=== PATIENT | female | born 2000 | race Caucasian/White ===

== ENCOUNTER → 2019-09-06 12:27 | Outpatient (BNVA) | payer BC, SELFPAY | PROVIDERS: Family Provider Family Medicine; PCP Family Medicine; Visit Provider Nurse Practitioner Family | DX: N39.0 Urinary tract infection, site not specified (principal); N92.6 Irregular menstruation, unspecified; N30.00 Acute cystitis without hematuria | CPT/HCPCS: 81000; 81025 ==

== ENCOUNTER → 2019-09-09 12:27 | Outpatient (BNVA) | payer BC, SELFPAY | PROVIDERS: Family Provider Family Medicine; PCP Family Medicine; Visit Provider Emergency Medicine | DX: N39.0 Urinary tract infection, site not specified (principal) | CPT/HCPCS: 81000 ==

== ENCOUNTER → 2021-01-09 16:23 | Outpatient (BNVA) | payer BC, SELFPAY | PROVIDERS: Family Provider Family Medicine; PCP Family Medicine; Visit Provider Registered Nurse Neonatal Intensive Care | DX: Z20.822 Contact with and (suspected) exposure to COVID-19 (principal); R05 Cough; R50.9 Fever, unspecified | CPT/HCPCS: 87635 ==

== ENCOUNTER 2022-10-17 05:54 | Observation (INO) | payer BC, SELFPAY ==
[2022-10-17 06:04] VITALS: BMI 42.0
--- NOTE | 2022-10-17 07:41 | P.CONIM_ITS ---
Providers/Reason For Consult Consulting Physician/Specialty*: Edward Cardenas MD, hospitalist Reason for Consult*: Medical management Requesting Physician: Dr. Torres Attending Physician: Siddhartha Torres MD Primary Care Provider: Ruth Burden DO History of Present Illness History of Present Illness Evelin Manley is a 22 year old female who presented to [facility] emergency department with complaints of abdominal pain starting Monday. She had a bout that lasted a little while then, went away and came back with a vengeance on Monday with discomfort in her right upper quadrant and epigastric area. She reported this occurred after eating barbecue. She eventually got nauseated and if she vomited. No diarrhea, blood in emesis, blood in stool. No history of constipation. Last p.o. intake of liquid or food at 7 PM last night. Has had at least 2 prior episodes of discomfort she attributed to heartburn in the past that now she is wondering if could have been gallbladder pain. She attributed this to food in the past as well. No fevers. No history of significant other illnesses. Review of Systems General: Reports: 10 or more systems reviewed and unremarkable except in HPI and below Card: Denies: chest pain Resp: Denies: dyspnea GI: Reports: abdominal pain, nausea and vomiting; Denies: diarrhea, constipation, hematochezia or melena Medications/Allergies Home Medications Medication Instructions Recorded Confirmed Last Taken Type bupropion HCl 300 mg 24 hr tablet, 300 mg PO DAILY 10/17/22 10/17/22 10/16/22 22:00 History extended release Allergies Allergy/AdvReac Type Severity Reaction Status Date / Time aspirin Allergy Mild ALGY-HIVES Verified 01/09/21 16:01 ibuprofen Allergy Mild ALGY-HIVES Verified 01/09/21 16:01 PFSH Acute PFSH: Medical History (Updated 10/17/22 @ 07:45 by Edward Cardenas MD) Depression Surgical History S/P tonsillectomy and adenoidectomy Social History Smoking and tobacco status: current every day smoker cigarettes Second hand smoke exposure: No Alcohol intake: never Desire information about alcohol rehabilitation?: No Substance/Drug Use: never Desire information about substance/drug rehabilitation?: No Sexually active: Yes Current gender identity: Female Other PFS information: Supplemental [facility] Information: Denies any significant family history. Vitals/I&O/Wt Last Vital Signs O2 Del Method Room Air 10/17/22 06:04 Weight last 48 hrs Weight 111.13 kg Physical Exam Narrative: General exam is a white female, complaining of right upper quadrant pain and asking for something for nausea HEENT: Atraumatic and normocephalic. Pupils equally round. Oropharynx clear. Neck is supple no lymphadenopathy thyromegaly Cardiovascular regular rate and rhythm without murmur, no S3 or S4 Lungs clear no wheezing or crackles Abdomen is soft. Tenderness is noted in the right upper quadrant. Positive bowel sounds. exam is deferred Extremities no cyanosis clubbing or edema, cap refill brisk Skin no rash Neuro no obvious focal deficits. Data Other Labs: Laboratory from [facility] was reviewed. Urinalysis with 3-5 whites, otherwise negative. White blood count 9.9, hemoglobin 12.0, platelet count of 318,000 Sodium 141, potassium 3.6, chloride 105, bicarb 27, BUN 11, creatinine 0.9, glucose 119. LFTs and lipase are normal Gallbladder ultrasound report demonstrates multiple stones in the gallbladder, with one in the neck that is not mobile. Common bile duct is normal diameter test is negative A&P Assessment and plan (1) Symptomatic cholelithiasis: There is concern the patient has symptomatic cholelithiasis, with a gallstone in the neck of the gallbladder that is not mobile. We will defer treatment to surgery Currently keep n.p.o., initiate IV fluids. Initiate nausea and pain control with Zofran, morphine Arrange for CBC and CMP tomorrow morning (2) Tobacco dependency: Patient declines nicotine patch currently (3) Depression: Resume bupropion when able. N.p.o. currently Plan Thank you for this consultation Will sign off at this time. Please contact me if there are any concerns and you would like me to address any other issues that come up. Consult Attestations Medical Necessity Statement: As per primary Diagnoses Symptomatic cholelithiasis K80.20 Tobacco dependency F17.200 Depression F32.A Time Spent (min) 39
[2022-10-17 07:50] VITALS: BP 139/92; PULSE 80; RESP 18; TEMP 36.8; O2SAT 100
[2022-10-17] MEDS: ondansetron 2 mg/ML SDV 2 mL 4 MG IVP ×3 (09:08→21:22)
[2022-10-17] MEDS: sodium chlor 0.9% + KCl 20 mEq 20 MEQ/1,000 ML BAG 100 MEQ IV ×2 (09:10→17:52)
[2022-10-17] MEDS: pantoprazole 40 mg SDV IVP (09:12)
[2022-10-17 12:00] VITALS: BP 139/97; PULSE 94; RESP 16; TEMP 36.7; O2SAT 97
[2022-10-17] MEDS: HYDROmorphone 1 mg/mL INJ 1 mL 0.5 MG IVP ×2 (14:36→21:15)
[2022-10-17 15:59] VITALS: BP 137/87; PULSE 100; RESP 16; TEMP 36.9; O2SAT 99
--- NOTE | 2022-10-17 16:15 | P.HP_ITS ---
Providers/Chief Complaint Admitting Physician: Siddhartha Torres MD Primary Care Provider: Ruth Burden DO Chief Complaint: Cholelithiaisis History of Present Illness Evelin Manley is a 22 year old female who presented to the hospital with abdominal pain. The pain is located in the right upper quadrant and does not radiate. Pain began 1 day ago. Eating makes pain worse. Nothing makes pain better. She does endorse nausea and vomiting. Denies any diarrhea or co nstipation. Ultrasound shows cholelithiasis. Review of Systems General: Reports: 10 or more systems reviewed and unremarkable except in HPI and below Medications/Allergies Home Medications Medication Instructions Recorded Confirmed Last Taken Type bupropion HCl 300 mg 24 hr tablet, 300 mg PO DAILY 10/17/22 10/17/22 10/16/22 22:00 History extended release Allergies Allergy/AdvReac Type Severity Reaction Status Date / Time aspirin Allergy Mild ALGY-HIVES Verified 01/09/21 16:01 ibuprofen Allergy Mild ALGY-HIVES Verified 01/09/21 16:01 PFSH Acute PFSH: Medical History (Updated 10/18/22 @ 10:06 by Tate Rios DO) Anxiety Depression Genital warts Surgical History S/P tonsillectomy and adenoidectomy Social History Smoking and tobacco status: current every day smoker cigarettes Second hand smoke exposure: No Alcohol intake: never Desire information about alcohol rehabilitation?: No Substance/Drug Use: never Desire information about substance/drug rehabilitation?: No Sexually active: Yes Current gender identity: Female Vitals/I&O/Wt Last Vital Signs Temp 98.5 F 10/17/22 15:59 Pulse 100 10/17/22 15:59 Resp 16 10/17/22 15:59 BP 137/87 10/17/22 15:59 Pulse Ox 99 10/17/22 15:59 O2 Del Method Room Air 10/17/22 15:59 10/17/22 10/17/22 10/17/22 06:59 14:59 22:59 Intake Total 240 / 240 Balance 240 / 240 Weight last 48 hrs Weight 245 lb Physical Exam Narrative: General : Patient is well developed , no acute distress, oriented x3 Head : Normal cephalic, a-traumatic. Ears : Pinnae and external canal are normal. Hearing is normal. Eyes : PERRLA, Sclera and injection are normal. No conjunctival discharge. Nose : Mucous membranes are without erythema. Throat : buccal mucosa is normal, gums are without significant recession or hypertrophy. Lungs : Equal chest rise bilaterally, no use of accessory muscles, trachea is midline. Cor : Rate and rhythm are normal. Abdomen : Soft, ND, tender to palpation right upper quadrant, positive Bennett sign,, no g/r/m Extremities : No edema, no cyanosis or clubbing, dorsalis pedis pulses are present bilaterally, non-tender to palpation of calves. Upper extremities are normal bilaterally. Back : non-tender to palpation, no CVA tenderness. Neuro : CN II - XII intact, Upper and lower extremities have equal and full strength Data 10/18/22 05:28 10/18/22 05:28 A&P Assessment and plan (1) Acute calculous cholecystitis: Plan IV antibiotics Pain control To OR tomorrow for laparoscopic cholecystectomy The risks and benefits of the procedure, including but not limited to, bleeding, infection, scar, numbness, pain, damage to surrounding structures, damage to common bile duct requiring additional surgery, conversion to an open procedure, were explained to the patient. He is understanding of the risks and wishes to proceed. Attestations Medical Necessity Statement*: Patient reports at least 1 night in the hospital for IV antibiotics and laparoscopic cholecystectomy tomorrow Coding Level of Care Code Acute Code for [facility] Fwd Diagnoses Acute calculous cholecystitis K80.00
[2022-10-17] MEDS: metoclopramide 5 mg/mL SDV 2 mL IVP ×2 (17:50→22:51)
[2022-10-17] MEDS: piperacillin-tazobactam 3.375 GM in sodium chloride 0.9% (plus) 50 ML IV (18:58)
[2022-10-17 20:00] VITALS: BP 145/93; PULSE 101; RESP 18; TEMP 37.3; O2SAT 100
[2022-10-17] MEDS: HYDROcodone-acetaminophen 7.5-325 mg Tablet 1 TAB PO (20:24)
[2022-10-17 21:15] VITALS: RESP 16
[2022-10-18] VITALS (15 sets, daily range): BP systolic 104–151; BP diastolic 71–89; PULSE 86–110; RESP 16–96; TEMP 36.3–37.6; O2SAT 95–100
[2022-10-18] MEDS: piperacillin-tazobactam 3.375 GM in sodium chloride 0.9% (plus) 50 ML IV ×3 (02:10→17:35)
[2022-10-18] MEDS: sodium chlor 0.9% + KCl 20 mEq 20 MEQ/1,000 ML BAG 100 MEQ IV (03:32)
[2022-10-18] MEDS: HYDROmorphone 1 mg/mL INJ 1 mL 0.5 MG IVP ×2 (03:36→08:44)
[2022-10-18] MEDS: metoclopramide 5 mg/mL SDV 2 mL IVP ×2 (05:07→17:35)
[2022-10-18] MEDS: ketorolac 30 mg/mL INJ 15 MG IVP (05:33)
[2022-10-18 05:44] LABS: Basophils % 0.1 %; Eosinophils % 0.2 %; Hemoglobin 12.8 g/dL (11.5-15.3); Lymphocytes # 2.6 10^3/uL (0.8-4.8); Mean Platelet Volume 10.6 fL (7.4-10.4); Monocytes # 0.9 10^3/uL (0.2-0.9); Monocytes % 5.7 %; Neutrophils # 12.54 10^3/uL (1.8-7.7); Neutrophils % 77.7 %; Nucleated Red Blood Cells % 0 %; Platelet Count 428 10^3/cmm (130-400); Red Blood Count 5.13 10^6/uL (4.1-5.3); Red Cell Distribution Width 13.3 % (12.1-15.1); White Blood Count 16.1 10^3/uL (4.0-10.0)
[2022-10-18 06:02] LABS: Alanine Aminotransferase 11 U/L (0-33); Albumin Level 4.2 g/dL (3.5-5.2); Alkaline Phosphatase 74 U/L (35-105); Anion Gap 18.2 (5-19); Aspartate Amino Transferase 14 U/L (0-32); Blood Urea Nitrogen 6 mg/dL (6-20); Calcium 8.9 mg/dL (8.5-10.5); Carbon Dioxide 20 mmol/L (22-29); Chloride 97 mmol/L (98-107); Globulin 3.4 g/dL (1.3-4.6); Glomerular Filtration Rate 88.1 mL/min (90-130); Glucose 129 mg/dL (65-115); Osmolality Calculated 271 mOsm/kg (285-295); Potassium 4.2 mmol/L (3.5-5.1); Sodium 131 mmol/L (136-145); Total Bilirubin 0.9 mg/dL (0.15-1.2); Total Protein 7.6 g/dL (6.6-8.7)
[2022-10-18] MEDS: pantoprazole 40 mg SDV IVP (08:45)
--- NOTE | 2022-10-18 10:07 | PM.PN ---
Vitals/I&O/Wt Last Vital Signs Temp 98.8 F 10/18/22 08:00 Pulse 92 10/18/22 08:00 Resp 16 10/18/22 08:44 BP 118/75 10/18/22 08:00 Pulse Ox 97 10/18/22 08:00 O2 Del Method Room Air 10/18/22 08:00 10/17/22 10/18/22 10/18/22 22:59 06:59 14:59 Intake Total 1110 / 1350 1066.667 / 2416.667 Balance 1110 / 1350 1066.667 / 2416.667 Weight last 48 hrs Weight 245 lb Data 10/18/22 05:28 10/18/22 05:28 A&P Assessment and plan (1) Acute calculous cholecystitis: Plan Laparoscopic cholecystectomy The risks and benefits of the procedure, including but not limited to, bleeding, infection, scar, numbness, pain, damage to surrounding structures, damage to common bile duct requiring additional surgery, conversion to an open procedure, were explained to the patient. He is understanding of the risks and wishes to proceed. Attestations Medical Necessity Statement*: Patient may require an additional night of hospitalization following laparoscopic cholecystectomy today Coding Level of Care Code Acute Code for g Fwd Diagnoses Acute calculous cholecystitis K80.00
--- NOTE | 2022-10-18 10:19 | PC.CHAP ---
Pastoral Care Encounter/Spiritual Assessment Type of Contact [] Declined oracle programmer visit [] Patient/Family/Request visit [] Outpatient visit [] Follow-up visit [] Physician referral [] Code/Alert [] Routine visit [] Staff referral [] Actively dying [] Patient sleeping [] Family support [] [] Out of room [] Palliative care [] [x] Receiving care in room [] Pre-surgical visit [] Trauma [] Long length of stay [] ICU visit [] Other: Relational/Emotional Strength [] Patient feels connected with others/family/visitors/staff [] Distress [] Loneliness/isolation [] Abandonment Spirituality of Patient [] Person of Chloe [] Attends Jehov[employer] Witness of their Chloe [] Believes in Prayer [] Reads Bible or Druze materials [] There are Spiritual issues to be addressed Switchgear Repairer Interventions [] Prayer [] Active listening [] Non-anxious presence [] Spiritual/emotional support [] Crisis/trauma care [] Spiritual counseling [] Bereavement support [] Provided bereavement packet [] Provided Bible/devotional materials [] Provided toy/stuffed animal, coloring book to patient or family member [] Provided Communion [] Anointing/[place] [] Salvation [] Completed spiritual assessment [] Other: Impact on Illness or Injury [] Angry [] Fearful [] Anxious [] Often cries [] Exhaustion [] Unable to work [] Unable to attend baptist [] Unable to walk/stand [] Unable to read [] Unable to drive [] Unable to eat/drink [] Unable to sleep [] Unable to be with family [] Patient intubated [] Other: Summary Time spent with patient
[2022-10-18] MEDS: sodium chloride 0.9% 1,000 ML 30 ML IV (12:06)
[2022-10-18 12:12] LABS: OR HCG Qualitative Urine Negative (Negative)
[2022-10-18] MEDS: fentaNYL 50 mcg/mL INJ 2mL IVP (12:55)
[2022-10-18] MEDS: ondansetron 2 mg/ML SDV 2 mL 4 MG IVP (12:55)
[2022-10-18] MEDS: lidocaine-epi 2% 20 mL INJ 3 ML INJECTION (13:47)
--- NOTE | 2022-10-18 14:16 | P.OP_ITS ---
Operative Report Date of procedure: October 18, 2022 Pre-op diagnosis: , Acute calculus cholecystitis Post-op diagnosis: same Procedure done: Laparoscopic cholecystectomy Implants: None Specimens removed/disposition: Gallbladder Surgeon: Dr. Tate Rios DO Anesthesia: General Estimated blood loss (mL): 20 Complications: None apparent Brief History: This is a very pleasant 22-year-old female who presented to the hospital with acute calculus cholecystitis. Laparoscopic cholecystectomy was indicated. The risk and benefits were explained and documented. Procedure: Patient was wheeled into the operative room and placed on the OR table in a supine position. Abdomen was inspected prepped and draped in usual sterile fashion. Time-out was performed and all present were in agreement. A 15 blade scalp was used to make a stab incision in the left upper quadrant and intra- abdominal insufflation was achieved using a Veress needle. After localizing the tissue incisions were made and a 5 millimeter trocar was placed into the umbilicus as well as 2 in the right upper quadrant. A 12 millimeter trocar was placed in the epigastrium. Gallbladder was grasped and elevated. The gallbladder was significantly inflamed and fibrotic. The triangle of Calot was carefully dissected using blunt dissection and electrocautery until the triangle of Calot clearly identified. The cystic duct was clipped proximally and double clipped distally. The duct was then ligated proximally. The cystic artery was doubly clipped and ligated. The gallbladder was then removed from the liver bed using electrocautery. The gallbladder was removed from the abdomen using an Endo-Catch bag through the epigastric incision. The liver bed was inspected and no bleeding was seen. The abdomen was irrigated and suctioned. The epigastric incision had to be extended to fit the gallbladder. The fascia at this incision was closed with a Filemon-Sarita and [id number] 0 Vicryl. All ports removed. Skin was washed and dried. Incisions were closed with 3-0 and 4-O Vicryl in a subcuticular interrupted fashion. Skin glue was applied. Patient tolerated the procedure well.
--- NOTE | 2022-10-18 15:18 | ANE.PACU2 ---
Inpatient post-anesthesia follow up: Airway intact: Yes Vital signs: Temperature 97.4 F Pulse Rate 97 Respiratory Rate 18 Blood Pressure 145/89 Pulse Oximetry 99 Oxygen Delivery Me thod Room Air Oxygen Flow Rate 6 Fraction of Inspir ed Oxygen Hydration adequate: Yes Nausea and vomiting: No Pain level: 1 Mental status: Baseline
[2022-10-19] VITALS: BP 102/71; PULSE 101; RESP 16; TEMP 37.2; O2SAT 96
[2022-10-19] MEDS: sodium chlor 0.9% + KCl 20 mEq 20 MEQ/1,000 ML BAG 30 MEQ IV (00:32)
[2022-10-19] MEDS: metoclopramide 5 mg/mL SDV 2 mL IVP ×2 (00:32→04:49)
[2022-10-19] MEDS: HYDROcodone-acetaminophen 7.5-325 mg Tablet 1 TAB PO ×3 (02:13→19:02)
[2022-10-19] MEDS: piperacillin-tazobactam 3.375 GM in sodium chloride 0.9% (plus) 50 ML IV ×2 (02:14→09:20)
[2022-10-19 03:37] VITALS: BP 128/83; PULSE 100; RESP 15; TEMP 37.1; O2SAT 97
[2022-10-19 07:23] VITALS: BP 124/73; PULSE 103; RESP 16; TEMP 36.9; O2SAT 97
[2022-10-19] MEDS: pantoprazole 40 mg SDV IVP (09:19)
[2022-10-19 11:07] VITALS: BP 130/85; PULSE 95; RESP 16; TEMP 36.9; O2SAT 97
[2022-10-19] MEDS: buPROPion XL (24 HR) 300 mg Tablet PO (11:46)
[2022-10-19 15:14] VITALS: BP 121/79; PULSE 94; RESP 16; TEMP 37.4; O2SAT 96
--- NOTE | 2022-10-19 18:42 | P.DS_ITS ---
Discharge Providers Date of Admission: 10/17/22 05:54 Date of Discharge: October 19, 2022 Attending Provider at Admission: Siddhartha Torres MD Attending Provider at Discharge: Tate Rios DO Primary Care Provider: Ruth Burden DO Diagnoses at Discharge Discharge Diagnosis (1) Acute calculous cholecystitis: Status: Acute Reason for Visit 2 Reason for Visit: Cholelithiaisis Hospital Course Hospital Course 22-year-old female presented to the hospital with acute calculus cholecystitis. He underwent laparoscopic cholecystectomy and was discharged home in good condition Physical Exam Narrative: General : Patient is well developed , no acute distress, oriented x3 Head : Normal cephalic, a-traumatic. Ears : Pinnae and external canal are normal. Hearing is normal. Eyes : PERRLA, Sclera and injection are normal. No conjunctival discharge. Nose : Mucous membranes are without erythema. Throat : buccal mucosa is normal, gums are without significant recession or hypertrophy. Lungs : Equal chest rise bilaterally, no use of accessory muscles, trachea is midline. Cor : Rate and rhythm are normal. Abdomen : Soft, ND,, incisions intact without erythema or exudate, no g/r/m Extremities : No edema, no cyanosis or clubbing, dorsalis pedis pulses are present bilaterally, non-tender to palpation of calves. Upper extremities are normal bilaterally. Back : non-tender to palpation, no CVA tenderness. Neuro : CN II - XII intact, Upper and lower extremities have equal and full strength Discharge Data Studies Completed and Pending Pending at discharge Category Date Time Status Pathology: Surgical [PTH] Routine Pth 10/18/22 13:44 Received Laboratory Results WBC 16.1 10^3/uL (4.0-10.0) H 10/18/22 05:28 RBC 5.13 10^6/uL (4.1-5.3) 10/18/22 05:28 Hgb 12.8 g/dL (11.5-15.3) 10/18/22 05:28 Hct 40.0 % (37.0-47.0) 10/18/22 05:28 MCV 78.0 fl (81-99) L 10/18/22 05:28 MCH 25.0 pg (28.0-34.0) L 10/18/22 05:28 MCHC 32.0 g/dL (30.0-36.0) 10/18/22 05:28 RDW 13.3 % (12.1-15.1) 10/18/22 05:28 Plt Count 428 10^3/cmm (130-400) H 10/18/22 05:28 MPV 10.6 fL (7.4-10.4) H 10/18/22 05:28 Neut % (Auto) 77.7 % 10/18/22 05:28 Lymph % (Auto) 16.0 % 10/18/22 05:28 Letcher % (Auto) 5.7 % 10/18/22 05:28 Eos % (Auto) 0.2 % 10/18/22 05:28 Baso % (Auto) 0.1 % 10/18/22 05:28 Neut # (Auto) 12.54 10^3/uL (1.8-7.7) H 10/18/22 05:28 Lymph # (Auto) 2.6 10^3/uL (0.8-4.8) 10/18/22 05:28 Letcher # (Auto) 0.9 10^3/uL (0.2-0.9) 10/18/22 05:28 Eos # (Auto) 0.0 10^3/uL (0.0-0.8) 10/18/22 05:28 Baso # (Auto) 0.0 10^3/uL (0.0-0.1) 10/18/22 05:28 Nucleated RBC % (auto) 0 % 10/18/22 05:28 Nucleated RBCs # 0.0 /100WBC 10/18/22 05:28 Sodium 131 mmol/L (136-145) L 10/18/22 05:28 Potassium 4.2 mmol/L (3.5-5.1) 10/18/22 05:28 Chloride 97 mmol/L (98-107) L 10/18/22 05:28 Carbon Dioxide 20 mmol/L (22-29) L 10/18/22 05:28 Anion Gap 18.2 (5-19) 10/18/22 05:28 BUN 6 mg/dL (6-20) 10/18/22 05:28 Creatinine 0.8 mg/dL (0.5-0.9) 10/18/22 05:28 GFR Calculation 88.1 mL/min (90-130) L 10/18/22 05:28 Glucose 129 mg/dL (65-115) H 10/18/22 05:28 Calculated Osmolality 271 mOsm/kg (285-295) L 10/18/22 05:28 Calcium 8.9 mg/dL (8.5-10.5) 10/18/22 05:28 Total Bilirubin 0.9 mg/dL (0.15-1.2) 10/18/22 05:28 AST 14 U/L (0-32) 10/18/22 05:28 ALT 11 U/L (0-33) 10/18/22 05:28 Alkaline Phosphatase 74 U/L (35-105) 10/18/22 05:28 Total Protein 7.6 g/dL (6.6-8.7) 10/18/22 05:28 Albumin 4.2 g/dL (3.5-5.2) 10/18/22 05:28 Globulin 3.4 g/dL (1.3-4.6) 10/18/22 05:28 Urine HCG, Qual Negative (Negative) 10/18/22 12:10 Procedures Performed Laparoscopic cholecystectomy Vitals Last Vital Signs Temp 99.3 F 10/19/22 15:14 Pulse 94 10/19/22 15:14 Resp 16 10/19/22 15:14 BP 121/79 10/19/22 15:14 Pulse Ox 96 10/19/22 15:14 O2 Del Method Room Air 10/19/22 15:14 O2 Flow Rate 6 10/18/22 14:38 Discharge Plan Discharge Patient Disposition: Home Condition: Stable Prescriptions: New hydrocodone-acetaminophen 7.5-325 mg tablet 1 tab PO Q6H PRN (Reason: pain) Qty: 20 0RF DOK 100 mg capsule 100 mg PO BID Qty: 14 0RF amoxicillin-pot clavulanate 875-125 mg tablet 1 tab PO BID Qty: 20 0RF Continued bupropion HCl 300 mg tablet extended release 24 hr 300 mg PO DAILY Discharge Orders: Discharge Order (Routine); Ordered 10/19/22 Ordered By: Tate Rios Referrals: Tate Rios DO [Physician] - 11/01/22 1:15 pm Discharge Diet: Advance as tolerated Discharge Activity: Resume usual activity Patient Instructions: Opioid Safety, Post Anesthesia Care Activity Restrictions/Additional Instructions: Not soak incision underwater for 2 weeks. Shower daily Discharge Attestations Time Spent in Discharge Care*: less than 30 min Quality Metrics Clinical Quality Measures [ No reported AMI, CVA or VTE this stay] Coding Level of Care Code Acute Code for Chg Fwd Diagnoses Acute calculous cholecystitis K80.00
--- NOTE | 2022-10-19 19:47 | PC.NURSE ---
1930: discharge instructions provided to patient, in regards to diet, activity, medication usage and times, follow up appointment, s/s to report as well as adverse reactions to medications prescribed. Patient unable to get pain med script filled until am due to pharmacy being closed, 2 hydros provided, instructions given to take every 6 hours as needed for pain, verbalizes understanding.
== END 2022-10-20 01:00 | disposition home or self-care (01) ==
PROVIDERS: Internal Medicine; Admitting Provider Surgery; PCP Family Medicine; Visit Provider Surgery
PROC: 0FT44ZZ Resection of Gallbladder, Percutaneous Endoscopic Approach (ICD-10-PCS; CPT 47562; principal; 2022-10-18 12:00)
DX: K80.12 Calculus of gallbladder with acute and chronic cholecystitis without obstruction (principal); F17.210 Nicotine dependence, cigarettes, uncomplicated; F32.A Depression, unspecified
CPT/HCPCS: 47562; 36415; 80053; 81025; 84703; 85025; 88304; C9113; G0378; G0379; J0131; J1100; J1170; J1885; J2405; J2543; J2704; J2710; J2765; J3010; J3480; J3490; J7030

== ENCOUNTER → 2024-02-06 11:07 | Outpatient (BNVA) | payer BC, SELFPAY | PROVIDERS: PCP Family Medicine; Referring Provider Nurse Practitioner Family; Visit Provider Nurse Practitioner Women's Health | DX: N92.0 Excessive and frequent menstruation with regular cycle (principal) | CPT/HCPCS: 82670; 83001; 83002; 83520; 84402; 84403; 84443 ==

== ENCOUNTER → 2024-03-06 10:55 | Outpatient (BNVA) | payer BC, SELFPAY | PROVIDERS: PCP Family Medicine; Visit Provider Nurse Practitioner Women's Health | DX: N92.6 Irregular menstruation, unspecified (principal) | CPT/HCPCS: 76830 ==

== ENCOUNTER → 2024-03-11 13:54 | Outpatient (BNVA) | payer BC, SELFPAY | PROVIDERS: PCP Family Medicine; Visit Provider Nurse Practitioner Women's Health | DX: N91.2 Amenorrhea, unspecified (principal) | CPT/HCPCS: 84702 ==

== ENCOUNTER 2024-04-30 11:49 | Emergency (ER) | payer BC, SELFPAY ==
[2024-04-30] VITALS (7 sets, daily range): BP systolic 118–158; BP diastolic 69–103; PULSE 73–89; RESP 16–18; TEMP 36.6; O2SAT 95–100; BMI 32.5
[2024-04-30 12:42] LABS: Bilirubin Urine Negative (Negative); Blood Urine Negative (Negative); Glucose Urine UA Negative (Normal); Ketones Urine 2+ (Negative); Leukocyte Esterase Urine Negative (Negative); Nitrate Urine Negative (Negative); Protein Urine Negative (Negative); Specific Gravity, Urine 1.018 (1.005-1.030); Urine Appearance Clear (CLEAR); Urine Color Yellow (Yellow); pH Urine 6.5 (5-7)
[2024-04-30 12:46] LABS: Add Urine Microscopic? YES; Bacteria Urine None Seen /hpf; RBC Urine 0-2 /hpf (0-2); Squamous Epithelial Cell Urine 0-5 /hpf (0-5); WBC Urine 0-5 /hpf (0-5)
[2024-04-30 12:49] LABS: Basophils % 0.2 %; Eosinophils # 0.1 10^3/uL (0.0-0.8); Eosinophils % 0.5 %; Hematocrit 38.6 % (36-47); Lymphocytes # 1.3 10^3/uL (0.8-4.8); Lymphocytes % 12.7 %; Mean Corpuscular HGB Conc 33.7 g/dL (30-55); Mean Corpuscular Hemoglobin 27.7 pg (27-33); Mean Corpuscular Volume 82.3 fl (85-98); Mean Platelet Volume 11.5 fL (7.4-10.4); Monocytes # 0.4 10^3/uL (0.2-0.9); Neutrophils # 8.14 10^3/uL (1.8-7.7); Neutrophils % 82.4 %; Nucleated Red Blood Cells % 0 %; Platelet Count 277 10^3/cmm (157-399); Red Blood Count 4.69 10^6/uL (3.85-5.65); Red Cell Distribution Width 14.2 % (12.1-15.1); White Blood Count 9.89 10^3/uL (3.29-11.43)
[2024-04-30 13:08] LABS: Alanine Aminotransferase 12 U/L (0-33); Albumin Level 4.2 g/dL (3.5-5.2); Alkaline Phosphatase 56 U/L (35-105); Anion Gap 15.3 (5-19); Aspartate Amino Transferase 14 U/L (0-32); Blood Urea Nitrogen 6 mg/dL (6-20); Calcium 8.9 mg/dL (8.5-10.5); Carbon Dioxide 20 mmol/L (22-29); Chloride 102 mmol/L (98-107); Creatinine Clr Calc Pharmacy 146.6802; Globulin 2.9 g/dL (1.3-4.6); Glomerular Filtration Rate 121.8 mL/min (90-130); Glucose 92 mg/dL (65-115); Osmolality Calculated 275 mOsm/kg (285-295); Potassium 3.3 mmol/L (3.5-5.1); Sodium 134 mmol/L (136-145); Total Bilirubin 0.5 mg/dL (0.15-1.2); Total Protein 7.1 g/dL (6.6-8.7)
--- NOTE | 2024-04-30 13:13 | ED_ITS ---
HPI - Headache 2 General: Chief Complaint: Headache Stated Complaint: complication Time Seen by Provider: 04/30/24 12:14 History of Present Illness: Patient presents to the ER with left-sided headache and not feeling quite right. Patient is approximately 6 weeks . 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 Patient said earlier she is having difficulty with finding words. Patient complains of nausea. This is patient's first . Patient has vomited x 1 since she been to the ER. Related Data Home Medications Medication Instructions Recorded Confirmed buspirone 5 mg tablet 5 mg PO ONCE PRN Anxiety 02/06/24 04/30/24 tirzepatide 7.5 mg/0.5 mL 4.5 mg SUBCUT Q7D 04/30/24 04/30/24 subcutaneous pen injector (Mounjaro) Previous Rx's Medication Instructions Recorded naproxen 500 mg tablet 500 mg PO BID #60 tabs 02/06/24 medroxyprogesterone 10 mg tablet 10 mg PO DAILY #10 tabs 03/13/24 (Provera) Allergies Allergy/AdvReac Type Severity Reaction Status Date / Time aspirin Allergy Mild ALGY-HIVES Verified 04/30/24 12:10 ibuprofen Allergy Mild ALGY-HIVES Verified 04/30/24 12:10 Review of Systems 2 General: Reports: 10 or more systems reviewed and unremarkable except in HPI and below PFSH ED 2 PFSH: Medical History Genital warts Anxiety Depression Surgical History Hx laparoscopic cholecystectomy S/P tonsillectomy and adenoidectomy Family History Father Diabetes Denies family history of Colon cancer Ovarian cancer Prostate cancer Heart disease Hyperlipidemia Breast cancer Hypertension Uterine cancer Thyroid disease Stroke Social History Smoking and tobacco/nicotine status: current every day tobacco/nicotine user (vape use) cigarettes Sexually active: Yes Current gender identity: Female Physical Exam 2 Const: COMMON NORMALS: no acute distress, average body habitus, patient oriented x3, no limitations, healthy appearing, alert and well nourished HENMT: COMMON NORMALS: normocephalic, atraumatic, hearing grossly normal bilaterally, external ears normal, Normal external nose present and moist oral mucous membranes HEAD & SCALP: normocephalic and atraumatic NOSE: Normal external nose present EXTERNAL EAR: Yes external ears normal Neck/C-Spine: COMMON NORMALS: full ROM, no lymphadenopathy, supple, no meningeal signs, no JVD and Thyroid normal THYROID: Thyroid normal Chest: COMMONS NORMALS: normal inspection of the chest and normal palpation of entire chest wall Resp: COMMON NORMALS: normal respiratory effort, No retractions, No use of accessory muscles and clear to auscultation bilaterally AUSCULTATION: clear to auscultation bilaterally Cardio: COMMON NORMALS: no JVD, regular rate, regular rhythm, S1 normal heart sound present, S2 normal heart sound present, No gallops present (Cardio), No clicks present (Cardio), No murmurs present (Cardio) and No rub (Cardio) R ATE: regular rate RHYTHM: regular rhythm HEART SOUNDS: S1 normal heart sound present and S2 normal heart sound present GI: COMMON NORMALS: Normal to inspection, nondistended, normoactive bowel sounds present, Soft to palpation, non-tender, No hepatosplenomegaly present and no masses PALPATION: Yes Soft to palpation and Yes No hepatosplenomegaly present Neuro: COMMON NORMALS: patient oriented x3 SENSORIUM/ORIENTATION: Yes alert MENINGEAL SIGNS: Yes no meningeal signs Course 2 Vital Signs: Vital signs: Vital Signs Temperature 97.9 F 04/30/24 12:01 Pulse Rate 79 04/30/24 14:58 Respiratory Rate 16 04/30/24 13:22 Blood Pressure 158/103 04/30/24 15:00 Pulse Oximetry 96 04/30/24 15:00 Oxygen Delivery Me thod Room Air 04/30/24 15:00 MDM - Headache Medical Decision Making Patient lab work was essentially unremarkable except for mildly low potassium and urine ketones. Patient was given 4 mg Zofran and then had an oral challenge which she passed. Patient be discharged home. Medical Records I reviewed the patient's medical records. Lab Data I reviewed the patient's lab results. 04/30/24 12:41 04/30/24 12:41 Laboratory Results WBC 9.89 10^3/uL (3.29-11.43) 04/30/24 12:41 RBC 4.69 10^6/uL (3.85-5.65) 04/30/24 12:41 Hgb 13.00 g/dL (11.27-16.99) 04/30/24 12:41 Hct 38.6 % (36-47) 04/30/24 12:41 MCV 82.3 fl (85-98) L 04/30/24 12:41 MCH 27.7 pg (27-33) 04/30/24 12:41 MCHC 33.7 g/dL (30-55) 04/30/24 12:41 RDW 14.2 % (12.1-15.1) 04/30/24 12:41 Plt Count 277 10^3/cmm (157-399) 04/30/24 12:41 MPV 11.5 fL (7.4-10.4) H 04/30/24 12:41 Neut % (Auto) 82.4 % 04/30/24 12:41 Lymph % (Auto) 12.7 % 04/30/24 12:41 [place] % (Auto) 4.0 % 04/30/24 12:41 Eos % (Auto) 0.5 % 04/30/24 12:41 Baso % (Auto) 0.2 % 04/30/24 12:41 Neut # (Auto) 8.14 10^3/uL (1.8-7.7) H 04/30/24 12:41 Lymph # (Auto) 1.3 10^3/uL (0.8-4.8) 04/30/24 12:41 [place] # (Auto) 0.4 10^3/uL (0.2-0.9) 04/30/24 12:41 Eos # (Auto) 0.1 10^3/uL (0.0-0.8) 04/30/24 12:41 Baso # (Auto) 0.0 10^3/uL (0.0-0.1) 04/30/24 12:41 Nucleated RBC % (auto) 0 % 04/30/24 12:41 Nucleated RBCs # 0.0 /100WBC 04/30/24 12:41 Sodium 134 mmol/L (136-145) L 04/30/24 12:41 Potassium 3.3 mmol/L (3.5-5.1) L 04/30/24 12:41 Chloride 102 mmol/L (98-107) 04/30/24 12:41 Carbon Dioxide 20 mmol/L (22-29) L 04/30/24 12:41 Anion Gap 15.3 (5-19) 04/30/24 12:41 BUN 6 mg/dL (6-20) 04/30/24 12:41 Creatinine 0.6 mg/dL (0.5-0.9) 04/30/24 12:41 GFR Calculation 121.8 mL/min (90-130) 04/30/24 12:41 Glucose 92 mg/dL (65-115) 04/30/24 12:41 Calculated Osmolality 275 mOsm/kg (285-295) L 04/30/24 12:41 Calcium 8.9 mg/dL (8.5-10.5) 04/30/24 12:41 Total Bilirubin 0.5 mg/dL (0.15-1.2) 04/30/24 12:41 AST 14 U/L (0-32) 04/30/24 12:41 ALT 12 U/L (0-33) 04/30/24 12:41 Alkaline Phosphatase 56 U/L (35-105) 04/30/24 12:41 C-Reactive Protein 9.4 mg/L (0.0-4.9) H 04/30/24 12:41 Total Protein 7.1 g/dL (6.6-8.7) 04/30/24 12:41 Albumin 4.2 g/dL (3.5-5.2) 04/30/24 12:41 Globulin 2.9 g/dL (1.3-4.6) 04/30/24 12:41 Ser , Semi-Qnt 8016.00 mIU/mL 04/30/24 12:41 Urine Color Yellow (Yellow) 04/30/24 12:27 Urine Appearance Clear (CLEAR) 04/30/24 12:27 Urine pH 6.5 (5-7) 04/30/24 12:27 Ur Specific [place] 1.018 (1.005-1.030) 04/30/24 12:27 Urine Protein Negative (Negative) 04/30/24 12: Urine Glucose (UA) Negative (Normal) 04/30/24 12:27 Urine Ketones 2+ (Negative) H 04/30/24 12:27 Urine Blood Negative (Negative) 04/30/24 12:27 Urine Nitrate Negative (Negative) 04/30/24 12:27 Urine Bilirubin Negative (Negative) 04/30/24 12:27 Urine Urobilinogen 1.0 mg/dL (Negative) 04/30/24 12:27 Ur Leukocyte Esterase Negative (Negative) 04/30/24 12:27 Urine RBC 0-2 /hpf (0-2) 04/30/24 12:27 Urine WBC 0-5 /hpf (0-5) 04/30/24 12:27 Ur Squamous Epith Cells 0-5 /hpf (0-5) 04/30/24 12:27 Amorphous Sediment Not Reportable 04/30/24 12:27 Urine Bacteria None seen /hpf (NONE) 04/30/24 12:27 Hyaline Casts 0.40 /lpf 04/30/24 12:27 All radiology interpretation(s) finalized by discharge Discharge Plan Discharge Patient Disposition: Home Clinical Impression: Headache Qualifiers: Headache type: unspecified Headache chronicity pattern: acute headache I ntractability: not intractable Qualified Code(s): R51.9 - Headache, unspecified Qualifiers: Weeks of gestation: less than 8 weeks Qualified Code(s): Z3A.01 - Less than 8 weeks gestation of Condition: Stable Prescriptions: No Action buspirone 5 mg tablet 5 mg PO ONCE PRN (Reason: Anxiety) naproxen 500 mg tablet 500 mg PO BID Qty: 60 1RF medroxyprogesterone [Provera] 10 mg tablet 10 mg PO DAILY Qty: 10 3RF Rx Instructions: take one tab daily for 10 days if you do not have a period for 60 days Mounjaro 7.5 mg/0.5 mL pen injector 4.5 mg SUBCUT Q7D Discharge Orders: Discharge ED (Routine); Ordered 04/30/24 Ordered By: Mckinley Pollock Referrals: Carol Chase FNP [Primary Care Provider] - 1 week Patient Instructions: Headache, Opioid Safety, Pain Management Activity Restrictions/Additional Instructions: Thank you for choosing [facility] for your healthcare needs today. Please realize that you were seen in the emergency department and that we are providing you with an emergency medical screening exam and this may not be a complete and all exclusive of all testing and/or medical workup we may need to determine your element or severity of your illness. It is very important that you follow-up as instructed with your primary care provider or specialist for the additional evaluation and to discuss your medical treatment plan. You may return to the emergency department should you have concerns or if your condition changes or worsens in any way. Coding Level of Care Code ED Boiler Riveter for Peter Haynes
[2024-04-30] MEDS: ondansetron 4 MG Tablet PO (13:22)
[2024-04-30 14:00] LABS: C Reactive Protein 9.4 mg/L (0.0-4.9)
--- NOTE | 2024-04-30 14:58 | PC.NURSE ---
PO challenge succuessful, kept down sprite and crackers.
== END 2024-04-30 15:53 | disposition home or self-care (01) ==
PROVIDERS: Emergency Provider Emergency Medicine; PCP Nurse Practitioner Family
DX: R51.9 Headache, unspecified (principal); Z3A.08 8 weeks gestation of pregnancy; F17.290 Nicotine dependence, other tobacco product, uncomplicated
CPT/HCPCS: 36415; 80053; 81001; 84702; 85025; 86140; 99283; Q0162

== ENCOUNTER → 2024-05-06 08:21 | Outpatient (BNVA) | payer BC, SELFPAY | PROVIDERS: PCP Nurse Practitioner Family; Visit Provider Nurse Practitioner Women's Health | DX: Z34.90 Encounter for supervision of normal pregnancy, unspecified, unspecified trimester (principal); Z3A.01 Less than 8 weeks gestation of pregnancy | CPT/HCPCS: 84315; 84702; 86850; 86900 ==

== ENCOUNTER → 2024-05-13 08:36 | Outpatient (BNVA) | payer BC, SELFPAY | PROVIDERS: PCP Nurse Practitioner Family; Visit Provider Nurse Practitioner Women's Health | DX: Z34.91 Encounter for supervision of normal pregnancy, unspecified, first trimester (principal); Z3A.00 Weeks of gestation of pregnancy not specified | CPT/HCPCS: 76801 ==

== ENCOUNTER → 2024-06-18 10:45 | Outpatient (BNVA) | payer SELFPAY | PROVIDERS: PCP Nurse Practitioner Family; Visit Provider Nurse Practitioner Women's Health | DX: Z34.90 Encounter for supervision of normal pregnancy, unspecified, unspecified trimester (principal) | CPT/HCPCS: 80307; 84315; 84443; 85025; 86592; 86762; 86803; 86850; 86900; 87086; 87340; 87491; 87591; 87661; 87806 ==